=== PATIENT | female | born 1955 | race Hispanic/Latino ===

== ENCOUNTER 2024-04-30 16:18 | Emergency (ER) | payer MEDICARE ==
[2024-04-30] MEDS ORDERED: Clindamycin 150 MG CAP ONE (17:02)
== END 2024-04-30 17:01 | disposition home or self-care (01) ==
LOC: BURERS 16:18
DX: S61.412A Laceration without foreign body of left hand, initial encounter (principal); I10 Essential (primary) hypertension; W26.0XXA Contact with knife, initial encounter
CPT/HCPCS: 99283